=== PATIENT | male | born 1990 | race Caucasian/White ===

== ENCOUNTER 2019-04-02 19:31 | Outpatient (REF) | payer MEDICAID, SELFPAY ==
[2019-04-02 20:34] LABS: BUN 13 mg/dL (7-18); CREATININE 1.06 mg/dL (0.70-1.30); Calcium 9.2 mg/dL (8.5-10.1); Chloride 101 mmol/L (98-107); Cholesterol 269 mg/dL (50-200); Glucose 87 mg/dL (70-100); HDL Cholesterol 46 mg/dL (40-60); LDL CHOLESTEROL 189 mg/dL (<100); Sodium 139 mmol/L (136-145); Triglyceride 198 mg/dL (30-150)
== END 2019-04-02 19:51 ==
LOC: NCHCN 19:31
PROVIDERS: PCP Specialist/Technologist Athletic Trainer; Visit Provider Specialist/Technologist Athletic Trainer
DX: Z13.228 Encounter for screening for other metabolic disorders (principal); Z13.220 Encounter for screening for lipoid disorders; Z00.00 Encounter for general adult medical examination without abnormal findings
CPT/HCPCS: 80048; 80061; 83721

== ENCOUNTER 2020-04-28 12:31 | Outpatient (REF) | payer MEDICAID, SELFPAY ==
[2020-04-28 19:43] LABS: Calculated LDL 258 mg/dL (<100); Cholesterol 344 mg/dL (<200); HDL Cholesterol 57 mg/dL (40-60); Triglyceride 146 mg/dL (<150)
== END 2020-04-28 12:51 ==
LOC: NCHCN 12:31
PROVIDERS: Nurse Practitioner Family; PCP Specialist/Technologist Athletic Trainer; Visit Provider Emergency Medicine
DX: E78.5 Hyperlipidemia, unspecified (principal)
CPT/HCPCS: 80061

== ENCOUNTER 2020-11-23 14:45 | Outpatient (REF) | payer MEDICAID, SELFPAY ==
[2020-11-23 15:52] LABS: ALT 94 U/L (16-63); AST 33 U/L (15-37); Calculated LDL 264 mg/dL (<100); Cholesterol 350 mg/dL (<200); HDL Cholesterol 52 mg/dL (40-60); Triglyceride 171 mg/dL (<150)
== END 2020-11-23 15:05 ==
LOC: NCHCN 14:45
PROVIDERS: PCP Specialist/Technologist Athletic Trainer; Visit Provider Nurse Practitioner Family
DX: E78.5 Hyperlipidemia, unspecified (principal)
CPT/HCPCS: 80061; 84450; 84460

== ENCOUNTER 2021-01-03 15:00 | Outpatient (CLI) | payer MEDICAID, SELFPAY ==
--- NOTE | 2021-01-03 14:15 | DI.RAD_ITS ---
EXAM: XR KNEE RT 3V AP,LAT,SCOOBY CLINICAL HISTORY: Knee pain TECHNIQUE: COMPARISON: No exams were available for comparison FINDINGS: Three views were obtained. No bony or soft tissue abnormality seen. There may be slight narrowing o f medial tibiofemoral cartilaginous joint space. IMPRESSION: RADIATION DOSE DELIVERED: Total DLP
== END 2021-01-03 15:01 | disposition home or self-care (01) ==
LOC: DIORS 15:01
PROVIDERS: PCP Nurse Practitioner Family; Visit Provider Student in an Organized Health Care Education/Training Program
DX: M25.561 Pain in right knee (principal)
CPT/HCPCS: 73562

== ENCOUNTER 2021-05-11 17:54 | Emergency (ER) | payer OTHER, MEDICAID, SELFPAY ==
--- NOTE | 2021-05-11 18:00 | DI.RAD_ITS ---
Exam(s) XR HAND RT COMPLETE EXAM: XR HAND RT COMPLETE CLINICAL HISTORY: hyperflexed, pain at 2-4 metacarpals. TECHNIQUE: 2D digital imaging was performed. COMPARISON: No exams were available for comparison FINDINGS: BONES: No acute fracture is present. No bony destructive lesion is seen. JOINTS: No dislocation present. SOFT TISSUE: Normal. IMPRESSION: Unremarkable radiographs of the right hand. DATA REPOSITORY: RADIATION DOSE DELIVERED:
[2021-05-11 18:07] VITALS: BP 162/89; PULSE 120; RESP 18; TEMP 37.1; O2SAT 100
[2021-05-11] MEDS: Acetaminophen 500 MG TAB 1000 MG PO (18:19)
[2021-05-11] MEDS: Ibuprofen 800 MG TAB PO (18:19)
--- NOTE | 2021-05-11 19:23 | DI.VRAD_ITS ---
PROCEDURE INFORMATION: Exam: XR Right Hand Exam date and time: 05/11/2021 6:12 PM Age: 30 years old Clinical indication: Injury or trauma; Other: Hyperflexed, pain at 2-4 metacarpals; Blunt trauma (contusions or hematomas); Hand; Right TECHNIQUE: Imaging protocol: XR Right hand. Views: 3 or more views. COMPARISON: No relevant prior studies available. FINDINGS: Bones/joints: No evidence for a fracture. Alignment is anatomic. The joint spaces are preserved. Soft tissues: Unremarkable. IMPRESSION: Unremarkable radiographic study. No fracture identified. Dictated and Authenticated by: Bienvenido Hammonds MD. Ordering:CLAIRE Ruiz MD
--- NOTE | 2021-05-11 19:26 | ED.GENADUL_ITS ---
Discharge Plan Disposition Patient Disposition: HOME Condition: Good Discharge Details Clinical Impression: Sprain of right wrist Primary Care Provider: Laura Jean ED Provider: Joseph Matos Home Meds and New Rx's Prescriptions: Continued bupropion HCl [Wellbutrin XL] 300 mg tablet extended release 24 hr 300 mg PO QAM RF: 0 rosuvastatin 10 mg tablet 10 mg PO DAILY RF: 0 diphenhydramine HCl 25 MG capsule 50 mg PO Q6H PRN PRNRF: 0 ibuprofen 800 MG tablet 800 mg PO TID Qty: 30 RF: 0 Discharge Instructions Instructions: Wrist Sprain (ED) Additional Instructions: At this time the x-ray shows no evidence of fracture. I suspect there is notable sprain to your ligaments, and bruise to the bones. Please use the wrist splint to help give support to your hand. Please take Tylenol and Motrin as needed for pain. Please use ice on your wrist to help with any swelling. If you have still persistent pain and or you find that you develop weakness you will need reevaluation of your wrist by your primary care provider or an pharmacy operations specialist. If you notice any worsening of your symptoms, or any new symptoms such as vomiting, diarrhea, fever, chills, shortness of breath, chest pain, numbness, weakness, or fainting , please return immediately to the emergency department for reevaluation. Please follow up with your primary care provider as soon as possible for reassessment and reevaluation. As always, it was a pleasure partici pating in your medical care today. Referrals: Laura Jean [Primary Care Provider] - Discharge Data Discharge Date/Time-TO BE ENTERED AT DEPARTURE: 05/11/21 19:35 Medical Decision Making 30-year-old male with no significant past medical history presents today for right hand injury. The patient is right-hand dominant. The patient states that he was at work when he fell and hyperflexed his wrist. He had moderate pain over his second third metacarpals. He came in immediately for ladonna luation after this. He admits to a small amount of tingling in his pinky but otherwise no other tingling. No other pain in the forearm. No other complaints at this time. Family physical exam demonstrates tenderness over the second and third metacarpal, shows over the carpals. No snuffbox tenderness whatsoever, good movement and sensation throughout. X-ray shows no acute process or evidence of fracture. We will give a wrist splint for support, recommend Tylenol Motrin. Discussed red flags for which to return. Diagnosis wrist strain. No evidence of significant flexor or extensor injury clinically at this time. I have extensively reviewed the treatment plan and discharge instructions with the patient. I have addressed all patient concerns at this time. The patient was made aware of what symptoms to monitor for that would warrant a return to the emergency department. Discussed the plan with the patient, they demonstrate verbal understanding and agreement with our assessment and plan at this time. The documentation in this chart was dictated using [employer] dictation software. Please excuse any dictation errors. FINDINGS: Bones/joints: No evidence for a fracture. Alignment is anatomic. The joint spaces are preserved. Soft tissues: Unremarkable. IMPRESSION: Unremarkable radiographic study. No fracture identified. Thank you for allowing us to participate in the care of your patient. Dictated and Authenticated by: Bienvenido Hammonds MD 05/11/2021 7:22 PM Eastern Time ([place] & [place]) HPI General Date/Time Provider Initiated Documentation: 05/11/21 17:55 . HPI Narrative: 30-year-old male with no significant past medical history presents today for right hand injury. The patient is right-hand dominant. The patient states that he was at work when he fell and hyperflexed his wrist. He had moderate pain over his second third metacarpals. He came in immediately for evaluation after this. He admits to a small amount of tingling in his pinky but otherwise no other tingling. No other pain in the forearm. No other complaints at this time. Related Data Home Medications Medication Instructions Recorded Confirmed diphenhydramine HCl 50 mg PO Q6H PRN PRN 06/21/15 06/21/15 ibuprofen 800 mg PO TID #30 tablet 06/21/15 bupropion HCl 300 mg 24 hr tablet, 300 mg PO QAM 01/03/21 05/11/21 extended release rosuvastatin 10 mg tablet 10 mg PO DAILY 01/03/21 Previous Rx's Medication Instructions Recorded ibuprofen 800 mg PO TID #30 tablet 06/21/15 Allergies Allergy/AdvReac Type Severity Reaction Status Date / Time tomato Allergy Verified 01/03/21 14:20 General Stated Complaint: Orthopedic MAYLIN: 4 Review of Systems All systems reviewed & are unremarkable except as noted in HPI and below [facility] Social History Smoking/Tobacco Use Status: Former Tobacco Use Smoking risk assessment performed?: Yes Drug use: Rarely Current gender identity: male Do you feel safe at home: Yes Do you feel safe in your relationship?: Yes Exam Narrative Exam Narrative: 1.Const: Well-nourished, Well-developed, appearing stated age 2.Eyes: PERRL, no conjunctival injection, and symmetrical lids. 3.ENT: Atraumatic external nose and ears. Moist MM. Neck: Symmetric, trachea midline, No thyromegaly. 4.CVS: +S1/S2, No murmurs or gallops. Peripheral pulses 2+ and equal in all extremities. Brisk capillary refill in all extremities. 5.RESP: Unlabored respiratory effort. Clear to auscultation bilaterally. No wheezes rales or rhonchi 6.GI: Soft, Nontender/Nondistended, No hepatosplenomegaly. No guarding or rebound. 7.MSK: Normocephalic, right hand: Hand demonstrates tenderness over the second and third metacarpal and carpals, however no tenderness over the anatomical snuffbox. No tenderness over the thumbs or fingers. Two-point discrimination present over the first second third fourth and fifth digit as well as the rest of the hand. Patient demonstrates good flexion and extension of the fingers with no rotation of the fingers, she demonstrates good movement of the thumb with good flexion, extension, adduction and abduction. 8.Skin: Warm, Dry. No rashes or lesions. 9.Neuro: furnace liner II-XII grossly intact. Sensation grossly intact, no focal neurologic deficits. Good two-point discrimination throughout. 10.Psych: (AAO) x3. Appropriate mood and affect Course Vital Signs Vital signs: Vital Signs Temperature 37.1 C 05/11/21 18:07 Pulse 120 H 05/11/21 18:07 Respiratory Rate 18 05/11/21 18:07 Blood Pressure 162/89 H 05/11/21 18:07 Pulse Oximetry 100 05/11/21 18:07 Temperature 37.1 C 05/11/21 18:07 Temperature Source Temporal Artery Scan 05/11/21 18:07 Pulse 120 H 05/11/21 18:07 Respiratory Rate 18 05/11/21 18:07 Respiratory Effort Non-Labored 05/11/21 18:09 Blood Pressure 162/89 H 05/11/21 18:07 Blood Pressure Position Sitting 05/11/21 18:07 Pulse Oximetry 100 05/11/21 18:07 Oxygen Delivery Method Room Air 05/11/21 18:07 Oxygen Flow Rate 0 05/11/21 18:07 Pain Level 8 05/11/21 18:19
== END 2021-05-11 19:35 | disposition home or self-care (01) ==
PROVIDERS: Emergency Provider Student in an Organized Health Care Education/Training Program; PCP Nurse Practitioner Family
DX: S63.591A Other specified sprain of right wrist, initial encounter (principal); W19.XXXA Unspecified fall, initial encounter
CPT/HCPCS: 29125; 99283; 73130

== ENCOUNTER 2021-07-07 15:36 | Outpatient (REF) | payer MEDICAID, SELFPAY ==
[2021-07-10 05:22] LABS: Vitamin D 25 Total 40.7 ng/mL (30-100)
== END 2021-07-07 15:37 | disposition home or self-care (01) ==
LOC: NCHCN 15:36
PROVIDERS: PCP Nurse Practitioner Family; Visit Provider Nurse Practitioner Family
DX: R53.83 Other fatigue (principal); F41.8 Other specified anxiety disorders
CPT/HCPCS: 82306

== ENCOUNTER 2021-09-01 15:52 | Outpatient (REF) | payer MEDICAID, SELFPAY ==
[2021-09-01 20:01] LABS: Calculated LDL 107 mg/dL (<100); Cholesterol 185 mg/dL (<200); HDL Cholesterol 49 mg/dL (40-60); Triglyceride 149 mg/dL (<150)
== END 2021-09-01 15:53 | disposition home or self-care (01) ==
LOC: NCHCN 15:52
PROVIDERS: PCP Nurse Practitioner Family; Visit Provider Nurse Practitioner Family
DX: E78.5 Hyperlipidemia, unspecified (principal)
CPT/HCPCS: 80061

== ENCOUNTER 2023-12-09 16:41 | Outpatient (REF) | payer OTHER, SELFPAY ==
[2023-12-09 16:53] LABS: ALT 65 U/L (16-63); AST 31 U/L (15-37); Albumin 4.3 g/dL (3.4-5.0); Alkaline Phosphatase 63 U/L (46-116); Anion Gap 7.6 mmol/L (3-11); BUN 12 mg/dL (7-18); Bilirubin, Total 0.3 mg/dL (0.2-1.0); CO2 27.4 mmol/L (21.0-32.0); Calcium 9.4 mg/dL (8.5-10.1); Calculated LDL 89 mg/dL (<100); Chloride 104 mmol/L (98-107); Cholesterol 163 mg/dL (<200); Estimated GFR 103.19 (mL/min/1.73m2); Glucose 105 mg/dL (74-106); HDL Cholesterol 56 mg/dL (40-60); Potassium 4.1 mmol/L (3.5-5.1); Sodium 139 mmol/L (136-145); Total Protein 7.7 g/dL (6.4-8.2); Triglyceride 92 mg/dL (<150)
== END 2023-12-09 16:42 | disposition home or self-care (01) ==
LOC: NCHCN 16:41
PROVIDERS: PCP Nurse Practitioner Family; Visit Provider Nurse Practitioner Family
DX: E78.5 Hyperlipidemia, unspecified (principal)
CPT/HCPCS: 80053; 80061

== ENCOUNTER 2024-01-28 15:23 | Outpatient (CLI) | payer OTHER, SELFPAY ==
--- NOTE | 2024-01-28 13:30 | DI.RAD_ITS ---
Exam(s) XR ANKLE LT COMPLETE EXAM: XR ANKLE LT COMPLETE CLINICAL HISTORY: LEFT ANKLE PAIN TECHNIQUE: 2D digital imaging was performed of the left ankle. Four images were obtained. AP, late ral and oblique views were obtained. COMPARISON: CR XR ANKLE LEFT 3 OR MORE VIEWS from 08/19/2023 FINDINGS: BONES: No acute fracture is present. No bony destructive lesion is seen. There is a tiny enthesophyte at the posterior calcaneus. JOINTS:The ankle mortise is normally aligned. SOFT TISSUE: Normal. IMPRESSION: Unremarkable radiographs of the left ankle. DATA REPOSITORY: RADIATION DOSE DELIVERED:
== END 2024-01-28 15:24 | disposition home or self-care (01) ==
LOC: DIORS 15:24
PROVIDERS: PCP Nurse Practitioner Family; Visit Provider Student in an Organized Health Care Education/Training Program
DX: M25.572 Pain in left ankle and joints of left foot (principal)
CPT/HCPCS: 73610

== ENCOUNTER → 2024-02-11 02:21 | Outpatient (CLI) | payer OTHER, SELFPAY ==
--- NOTE | 2024-02-11 07:45 | DI.MRI_ITS ---
Exam(s) MR LOWER JOINT LT WO EXAM: MR LOWER JOINT LT WO CLINICAL HISTORY: mod ankle sprain,s93.402a,? ligamentous injury,? ocd TECHNIQUE: Multiplanar multisequence MRI was performed without intravenous contrast. COMPARISON: CR XR ANKLE LT COMPLETE from 01/28/2024 FINDINGS: BONES/JOINTS: No fracture or contusion pattern. No bone lesions identified. The talar dome is smooth. The ankle mortise is maintained. No joint effusion is present. Note is made of an os tibialis cost manager um accessory bone. LIGAMENTS: The tibiofibular and calcaneofibular ligaments are intact. The anterior talofibular ligame nt is incompletely imaged. There is hyperintense signal seen within the deep tibial talar ligament. The syndesmosis is unremarkable. Sinus tarsi is normal. MUSCULOTENDINOUS STRUCTURES: Achilles tendon: Unremarkable. Plantar fascia: Unremarkable. Anterior Extensor tendons: Unremarkable. Posterior Tibialis: Unremarkable. There is a component of the posterior tendon which inserts onto the accessory ossicle. There is normal marrow signal within the os and the adjacent navicular bone. Flexor Digitorum longus: Unremarkable. Flexor Hallucis longus: Unremarkable. Peroneus longus: Unremarkable. Peroneus brevis:Unremarkable. SOFT TISSUES: Unremarkable. OTHER FINDINGS: None. IMPRESSION: 1. A normal anterior talofibular ligament is not seen. This may represent a chronic ligament tear. 2. Mild hyperintense signal seen in the deep tibial talar ligament which may represent a sprain. 3. Accessory navicular with insertion of the posterior tibialis tendon. There is normal signal seen between the os in the adjacent navicular bone. 4. No evidence of a tendon tear. 5. No evidence of an occult fracture or osteochondral lesion of the talar dome. DATA REPOSITORY:
== END ==
PROVIDERS: PCP Nurse Practitioner Family; Visit Provider Student in an Organized Health Care Education/Training Program
DX: M25.572 Pain in left ankle and joints of left foot (principal)
CPT/HCPCS: 73721

== ENCOUNTER 2025-04-19 17:53 | Outpatient (REF) | payer OTHER, SELFPAY ==
[2025-04-19 19:10] LABS: ALT 39 U/L (16-63); AST 22 U/L (15-37); Albumin 4.4 g/dL (3.4-5.0); Alkaline Phosphatase 57 U/L (46-116); Anion Gap 9.1 mmol/L (3-11); BUN 16 mg/dL (7-18); Bilirubin, Total 0.2 mg/dL (0.2-1.0); CO2 28.9 mmol/L (21.0-32.0); CREATININE 0.9 mg/dL (0.70-1.30); Calcium 9.3 mg/dL (8.5-10.1); Chloride 103 mmol/L (98-107); Estimated GFR 116.37 (mL/min/1.73m2); Glucose 93 mg/dL (74-106); Potassium 3.8 mmol/L (3.5-5.1); Sodium 141 mmol/L (136-145); Total Protein 7.3 g/dL (6.4-8.2)
[2025-04-19 19:14] LABS: Hemoglobin A1C 5.7 % (<5.7)
== END 2025-04-19 17:54 | disposition home or self-care (01) ==
LOC: NCHCN 17:53
PROVIDERS: PCP Nurse Practitioner Family; Visit Provider Nurse Practitioner Family
DX: Z00.00 Encounter for general adult medical examination without abnormal findings (principal); E78.5 Hyperlipidemia, unspecified
CPT/HCPCS: 80053; 83036